=== PATIENT | female | born 1935 | race Caucasian/White ===

== ENCOUNTER 2017-08-10 11:33 | Emergency (ER) | payer MEDICARE, OTHER ==
[2017-08-10] MEDS ORDERED: LoraTADine TAB(NF) 10 MG TAB (AUTOSUB to CETIRIZINE) PO ONE (13:49)
[2017-08-10] MEDS ORDERED: Cetirizine* 10 MG TAB PO SCH (14:00)
[2017-08-10 14:26] LABS: ABS Basophils 0.1 10^3/ul (0-0.2); ABS Eosinophils 0.1 10^3/ul (0-0.6); ABS Lymphocytes 1.1 10^3/ul (1.0-4.8); ABS Monocytes 0.4 10^3/ul (0-0.8); ABS Neutrophils 5.7 10^3/ul (1.5-7.7); ABS Nucleated RBC 0 10^3/ul; Eosinophil % 1.4 % (0-6); Hematocrit 41 % (35-47); Hemoglobin 14.1 g/dl (12.0-16.0); Mean Corpuscular HGB Conc 34 g/dl (31-36); Mean Corpuscular Hemoglobin 33 pg (27-31); Mean Corpuscular Volume 96 fL (80-97); Mean Platelet Volume 8 um3 (7.4-10.4); Nucleated Red Blood Cells % 0; Platelet Count 264 10^3/ul (150-450); Red Blood Count 4.27 10^6/ul (4.0-5.4); Red Cell Distribution Width 13 % (10.5-15); White Blood Count 7.4 10^3/ul (3.5-10.8)
[2017-08-10 14:58] LABS: EGFR Non-African American 84.7 (>60)
[2017-08-10 17:24] VITALS: BP 158/66
--- NOTE | 2017-08-11 16:13 | ED ---
Surendra London Thomas, scribed for Tello Dobson MD on 08/10/17 at 1407 . Complex/Multi-Sys Presentation - HPI Summary HPI Summary: The patient is an 82 year old female who has been dealing with gastrointestinal discomfort, bloating, small stools, and weight loss for the last month. She was diagnosed with SIBO by her adult basic education instructor Dr. Yu. The patient recently finished a two-week course of Rifaximin for her SIBO. Five days ago, the patient had lip swelling that is relieved in the ED. The patient also complains of a sensation of my brain is on fire. Harjeet relieves her symptoms. She is on the FODMAP diet. She is on Lisinopril. - History Of Current Complaint Chief Complaint: EDAllergicReaction Time Seen by Provider: 08/10/17 13:02 Hx Obtained From: Patient Onset/Duration: Lasting Days - 5, Still Present Severity Currently: None Alleviating Factor(s): Harjeet Associated Signs And Symptoms: Positive: Other - GI discomfort, weight loss, lip swelling, "my brain is on fire" Related History: Other - Hx SIBO - Allergies/Home Medications Allergies/Adverse Reactions: Allergies Allergy/AdvReac Type Severity Reaction Status Date / Time Penicillins Allergy Rash Verified 08/10/17 11:38 PMH/Surg Hx/FS Hx/Imm Hx GI History: Reports: Other GI Disorders - Hx SIBO Opthamlomology History: Denies: Hx Legally Blind EENT History: Denies: Hx Deafness Infectious Disease History: No Infectious Disease History: Denies: Traveled Outside the [place] in Last 30 Days - Family History Known Family History: Negative: Blood Disorder - Social History Alcohol Use: None Substance Use Type: Reports: None Smoking Status (MU): Never Smoked Tobacco Review of Systems Positive: Other - Weight loss. Negative: Fever Positive: Other - Lip swelling Positive: Other - GI discomfort Neurological: Other - "my brain is on fire" All Other Systems Reviewed And Are Negative: Yes Physical Exam - Summary Physical Exam Summary: Appearance: The patient is well-nourished in no acute distress and in no acute pain. Skin: The skin is warm and dry and skin color reflects adequate perfusion. HEENT: ~The head is normocephalic and atraumatic. The pupils are equal and reactive. The conjunctivae are clear and without drainage. ~Nares are patent and without drainage. Mouth reveals moist mucous membranes and the throat is without erythema and exudate. The external ears are intact. The ear canals are patent and without drainage. The tympanic membranes are intact. Neck: the neck is supple with full range of motion and non-tender. There are no carotid bruits. ~There is no neck vein distension. Respiratory: Chest is non-tender. ~Lungs are clear to auscultation and breath sounds are symmetrical and equal. Cardiovascular: Heart is regular rate and rhythm. ~There is no murmur or rub auscultated. ~~There is no peripheral edema and pulses are symmetrical and equal. Abdomen: The abdomen is soft and non-tender. ~There are normal bowel sounds heard in all four quadrants and there is no organomegaly palpated. Musculoskeletal: There is no back tenderness noted. ~Extremities are non-tender with full range of motion. ~There is good capillary refill. There is no peripheral edema or calf tenderness elicited. Neurological: Patient is alert and oriented to person, place and time. ~The patient has symmetrical motor strength in all four extremities. ~Cranial nerves are grossly intact. Deep tendon reflexes are symmetrical and equal in all four extremities. Psychiatric: The patient has an appropriate affect and does not exhibit any anxiety or depression. Triage Information Reviewed: Yes Vital Signs On Initial Exam: Initial Vitals Temp Pulse Resp BP Pulse Ox 98.2 F 85 16 153/74 96 08/10/17 11:39 08/10/17 11:39 08/10/17 11:39 08/10/17 11:39 08/10/17 11:39 Vital Signs Reviewed: Yes Diagnostics - Vital Signs Vital Signs Temp Pulse Resp BP Pulse Ox 08/10/17 11:39 98.2 F 85 16 153/74 96 - Laboratory Lab Results: Lab Results 08/10/17 08/10/17 Range/Units 14:15 14:15 WBC 7.4 (3.5-10.8) 10^3/ul RBC 4.27 (4.0-5.4) 10^6/ul Hgb 14.1 (12.0-16.0) g/dl Hct 41 (35-47) % MCV 96 (80-97) fL MCH 33 H (27-31) pg MCHC 34 (31-36) g/dl RDW 13 (10.5-15) % Plt Count 264 (150-450) 10^3/ul MPV 8 (7.4-10.4) um3 Neut % (Auto) 76.8 (38-83) % Lymph % (Auto) 15.0 L (25-47) % Mccone % (Auto) 5.8 (0-7) % Eos % (Auto) 1.4 (0-6) % Baso % (Auto) 1.0 (0-2) % Absolute Neuts (auto) 5.7 (1.5-7.7) 10^3/ul Absolute Lymphs (auto) 1.1 (1.0-4.8) 10^3/ul Absolute Monos (auto) 0.4 (0-0.8) 10^3/ul Absolute Eos (auto) 0.1 (0-0.6) 10^3/ul Absolute Basos (auto) 0.1 (0-0.2) 10^3/ul Absolute Nucleated RBC 0 10^3/ul Nucleated RBC % 0 Sodium 137 (133-145) mmol/L Potassium 3.3 L (3.5-5.0) mmol/L Chloride 100 L (101-111) mmol/L Carbon Dioxide 29 (22-32) mmol/L Anion Gap 8 (2-11) mmol/L BUN 11 (6-24) mg/dL Creatinine 0.67 (0.51-0.95) mg/dL Est GFR ( Amer) 108.9 (>60) Est GFR (Non-Af Amer) 84.7 (>60) BUN/Creatinine Ratio 16.4 (8-20) Glucose 86 (70-100) mg/dL Calcium 9.7 (8.6-10.3) mg/dL Total Bilirubin 0.60 (0.2-1.0) mg/dL AST 15 (13-39) U/L ALT 9 (7-52) U/L Alkaline Phosphatase 43 (34-104) U/L C-Reactive Protein < 1.00 (< 5.00) mg/L Total Protein 6.5 (6.4-8.9) g/dL Albumin 4.2 (3.2-5.2) g/dL Globulin 2.3 (2-4) g/dL Albumin/Globulin Ratio 1.8 (1-3) Vitamin B12 280 (180-914) pg/mL Result Diagrams: 08/10/17 14:15 08/10/17 14:15 Lab Statement: Any lab studies that have been ordered have been reviewed, and results considered in the medical decision making process. Complex Multi-Symp Course/Dx Course Of Treatment: Ms. Main presented C/O her upper lip swelling and "my brain is inflamed". She improved with atarax. I could not appreciate any swelling or other findings on exam. She has recently taken xifaxin for SIBO and finished yesterday. She is also on an LANDON inhibitor. I recommended she F/U with her MD and continue harjeet. She may need to stop the LANDON if symptoms continue. - Diagnoses Provider Diagnoses: Allergic reaction Discharge - Discharge Plan Condition: Stable Disposition: HOME Prescriptions: hydrOXYzine HCL TAB* [Atarax 25 MG TAB*] 25 mg PO QID PRN #20 tab PRN Reason: Allergy Symptoms Patient Education Materials: General Allergic Reaction (ED) Referrals: Kiko Tee MD [Primary Care Provider] - 3 Days Additional Instructions: Follow up with your primary care physician within a week. Return to the emergency department for any new or worsening symptoms. The documentation as recorded by the Surendra alfaro Thomas accurately reflects the service I personally performed and the decisions made by me, Tello Dobson MD.
== END 2017-08-10 17:22 | disposition home or self-care (01) ==
LOC: ED 11:33
DX: T78.40XA Allergy, unspecified, initial encounter (principal); X58.XXXA Exposure to other specified factors, initial encounter
CPT/HCPCS: 36415; 80053; 82607; 85025; 86140; 99281; A9270-GY

== ENCOUNTER 2018-01-13 10:08 | Emergency (ER) | payer MEDICARE ==
[2018-01-13] MEDS ORDERED: NS 0.9% 1000 ML* 1,000 ML IV ONE (10:29)
[2018-01-13 10:47] LABS: ABS Basophils 0 10^3/ul (0-0.2); ABS Eosinophils 0.1 10^3/ul (0-0.6); ABS Lymphocytes 0.5 10^3/ul (1.0-4.8); ABS Monocytes 0.5 10^3/ul (0-0.8); ABS Neutrophils 10.2 10^3/ul (1.5-7.7); ABS Nucleated RBC 0 10^3/ul; Eosinophil % 0.5 % (0-6); Hematocrit 41 % (35-47); Hemoglobin 13.9 g/dl (12.0-16.0); Lymphocyte % 4.6 % (25-47); Mean Corpuscular HGB Conc 34 g/dl (31-36); Mean Corpuscular Hemoglobin 33 pg (27-31); Mean Corpuscular Volume 96 fL (80-97); Mean Platelet Volume 8.4 um3 (7.4-10.4); Nucleated Red Blood Cells % 0; Platelet Count 249 10^3/ul (150-450); Red Blood Count 4.28 10^6/ul (4.00-5.40); Red Cell Distribution Width 13 % (10.5-15); White Blood Count 11.3 10^3/ul (3.5-10.8)
--- NOTE | 2018-01-13 10:50 | ED ---
GI/ HPI - HPI Summary HPI Summary: The pt is an 82 y/o female BIBA, accompanied by her daughter with c/o N/V/D and near syncope at 08:00 this morning. Pt is scheduled to have a sigmoidoscopy as an outpatient today at 11:45am but came for evaluation after she ate a bowl of broth and then self-administered one enema and felt awful, started vomiting , had profuse watery diarrhea and her pulse dropped in the 50's. She knew her pulse was in the 50's because she wears an Apple watch. Five months ago she was diagnosed with Small Intestinal Bacterial Overgrowth (SIBO). Her croze cutter helper started her on a FODMAP (Fermentable Oligo-, Di-, Coffee-saccharides And Polyols) diet for which involves eating a diet rich in chicken, fish and eggs. Recently she added new foods such as peaches, cherries, cheese and wine which triggered her worsening sxs of fluffy, mucousy, orangish diarrhea. Since being dx'd with SIBO pt has had weight loss (107 to 89 lbs in 5 months), associated with diaphoresis and abdominal tenderness . Dr. Yu is doing the sigmoidoscopy today so he can do biopsies to further characterize her condition. Her heart rate is in the 60s usually, based on her Applewatch and drops to the 50s when she sleeps. The pt denies CP and dyspnea today. She takes Diazide, Potassium and Magnesium at home, but did not take them today. The pt denies a PMhx of CHF. She has + Fhx of CVA, CAD, no fam hx of colon CA. Home Medications Medication Instructions Recorded Confirmed Type Aspirin 81 mg CHEW TAB* [Aspirin 81 mg PO DAILY 01/13/18 01/13/18 History Low Dose TAB*] FLUoxetine CAP* [PROzac CAP*] 20 mg PO DAILY 01/13/18 01/13/18 History Florajen3 1 cap PO DAILY 01/13/18 01/13/18 History Mag64 64 mg PO DAILY 01/13/18 01/13/18 History Melatonin 5 mg PO BEDTIME PRN 01/13/18 01/13/18 History Multivitamin [Multivitamins] 1 cap PO DAILY 01/13/18 01/13/18 History Naproxen Sodium [Aleve] 220 mg PO DAILY PRN 01/13/18 01/13/18 History Potassium Chloride [Klor-Con 8] 8 meq PO DAILY 01/13/18 01/13/18 History Triamterene/HCTZ 37.5-25 MG* 1 cap PO DAILY 01/13/18 01/13/18 History [Dyazide CAP*] Initial Vital Signs Temp 96.6 F 01/13/18 10:09 Pulse 52 01/13/18 10:09 Resp 13 01/13/18 10:09 BP 156/77 01/13/18 10:09 Pulse Ox 97 01/13/18 10:09 - History of Current Complaint Chief Complaint: EDNauseaVomitDiarrh Time Seen by Provider: 01/13/18 10:29 Stated Complaint: VOMITING Hx Obtained From: Patient, Family/Packer Denture - Daughter Onset/Duration: Started Hours Ago, Worse Since - Today at 08:00 Timing: Constant Severity: Severe Current Severity: Moderate Pain Intensity: 0 Location of Pain: Diffuse Pain Characteristics: Cramping Associated Signs and Symptoms: Positive: Nausea, Vomiting, Weight Loss - From 107lbs, 5 months ago, to 89 lbs currently, Diarrhea, Diaphoresis, Abdominal Pain , Other: - Orangish stool, watery diarrhea. Negative: Chest Pain Aggravating Factor(s): Food - recent added foods to her diet per her croze cutter helper Alleviating Factor(s): Nothing - Allergy/Home Medications Allergies/Adverse Reactions: Allergies Allergy/AdvReac Type Severity Reaction Status Date / Time Penicillins Allergy Rash Verified 01/13/18 09:27 Home Medications: Home Medications Multivitamin [Multivitamins] 1 cap PO DAILY 01/13/18 [History Confirmed 01/13/18 ] PMH/Surg Hx/FS Hx/Imm Hx Previously Healthy: No Cardiovascular History: Reports: Hx Hypertension Denies: Hx Congestive Heart Failure GI History: Reports: Other GI Disorders - Hx Small Intestinal Bacterial Overgrowth(SIBO ) Sensory History: Denies: Hx Legally Blind, Hx Deafness Opthamlomology History: Denies: Hx Legally Blind - Surgical History Surgery Procedure, Year, and Place: none Infectious Disease History: No Infectious Disease History: Denies: Traveled Outside the [place] in Last 30 Days - Family History Known Family History: Positive: Cardiac Disease, Other - Denies a FHx of colon CA, positive fam hx of CVA Negative: Blood Disorder - Social History Occupation: Retired Lives: Alone Alcohol Use: None Substance Use Type: Reports: None Smoking Status (MU): Never Smoked Tobacco Review of Systems Positive: Skin Diaphoresis, Other - Positive: Weight loss Cardiovascular: Negative Respiratory: Negative Positive: Abdominal Pain, Vomiting, Diarrhea - Watery , Nausea, Other - Orangish , fluffy stool; Positive: Abd tenderness Positive: no symptoms reported Skin: Negative Neurological: Negative Psychological: Normal All Other Systems Reviewed And Are Negative: Yes Physical Exam - Summary Physical Exam Summary: Appearance: ill-appearing, moderate pain distress, thin, frail. Skin: Warm, color reflects adequate perfusion, dry Head: Normal Head/Face inspection, atraumatic Eyes: Conjunctiva clear ENT: Normal inspection Neck: Supple, no nodes, no JVD Respiratory: Lungs clear, normal breath sounds, no respiratory distress Cardio: RRR, No murmur, pulses normal, brisk capillary refill Abdomen: Soft, nondistended, diffusely tender Bowel sounds: Present Rectal with Chante as public finance specialist: external area with hemorrhoids, non thrombosed, not bleeding. no abnormalities noted. Full rectal exam not done, as pt appears to have had vagal reaction and near syncope with enema application earlier, and pt is having sigmoidoscopy today if able. Musculoskeletal: Strength Intact/ROM intact, no calf tenderness, no edema. Psychological: Normal Neuro: Alert, muscle tone normal, no focal deficit Triage Information Reviewed: Yes Vital Signs On Initial Exam: Initial Vitals Temp Pulse Resp BP Pulse Ox 96.6 F 52 13 156/77 97 01/13/18 10:09 01/13/18 10:09 01/13/18 10:09 01/13/18 10:09 01/13/18 10:09 Vital Signs Reviewed: Yes Diagnostics - Vital Signs Vital Signs Temp Pulse Resp BP Pulse Ox 01/13/18 10:09 96.6 F 52 13 156/77 97 - Laboratory Result Diagrams: 01/13/18 10:38 01/13/18 10:38 Lab Statement: Any lab studies that have been ordered have been reviewed, and results considered in the medical decision making process. - Radiology CXR Radiology Interpretation Completed By: Radiologist - IMPRESSION: NO ACTIVE CARDIOPULMONARY DISEASE IS NOTED. The ED physician has reviewed this radiology report. - EKG 1015 Cardiac Rate: Bradycardia EKG Rhythm: Sinus Bradycardia ST Segment: Non-Specific Ectopy: None EKG Interpretation: nl AVIVCT, nl QTc, nl axis, no acute changes EKG Comparison: Other - no prior to compare Re-Evaluation - Re-Evaluation First Eval Re-Evaluation Time: 12:33 Change: Improved - Pt sitting on the commode and is producing yellow stool. Her BP is 185/99 and heart rate 50 bpm Second Eval Re-Evaluation Time: 13:15 Change: Improved - Dr Yu saw the pt in the ED, cancelled the sigmoidoscopyfor today ad states she may be discharged. The pt reports feeling better and denies CP and dizziness. The pt will be discharged after making sure she can eat. Third Eval Re-Evaluation Time: 15:06 Change: Improved - The pt feels better and is ready for discharge. GIGU Course/Dx - Course Course Of Treatment: 82 yo F with chronic diarrhea, SIBO, due for outpatient sigmoidoscopy today, had near syncope and vasovagal episode with administration of first enema at home. Discussed with Dr. Yu who agreed with replace K+ and magnesium and advised second enema for adequate prep. Pt again had vasovagal episode with feeling like she would faint, bradycardia to 50's, diaphoresis, pallor. Dr. Yu came to ED and evaluated pt and spoke with pt and Airam barnes. Pt decided to post pone flexible sigmoidoscopy today, and Dr. Yu will arrange the sigmoidoscopy to be done with Anesthesia. Pt and daughter agree and pt and daughter agree with DC home now. Pt was able to eat and drink and ambulate in the ED prior to discharge. - Diagnoses Differential Diagnoses - Female: Cancer, Diverticulitis, Diarrhea, Gastroenteritis (Viral), Gastroenteritis (Bacterial), Ischemic Bowel, Other - vasovagal episode, CAD, intestinal ischemia Provider Diagnoses: Vasovagal near-syncope, Chronic diarrhea of unknown origin, Small intestinal bacterial overgrowth, Hypokalemia, Hypomagnesemia - Physician Notifications Discussed Care Of Patient With: Surendra Yu - County Bailiff Time Discussed With Above Provider: 11:10 - 11: 25: Dr Yu recommends administering a secong enema before he sees the pt at his office 12:29: Advised Dr. Yu to come see the pt in the ED Instructed by Provider To: Other - Notified the provider that the pt was being referred to his office. Discharge - Sign-Out/Discharge Documenting (check all that apply): Patient Departure - home - Discharge Plan Condition: Stable Disposition: HOME Patient Education Materials: Near Syncope (ED) Referrals: Surendra Yu MD [Medical Doctor] - 1 Week Kiko Tee MD [Primary Care Provider] - 2 Days Additional Instructions: Your potassium was 3.2 (normal is 3.5) and your magnesium was 1.7 (normal is 1.9 ). You were given IV replacement of both of these ions IV. Dr. Yu saw you while you were in the ER and has decided to do your procedure with anesthesia. You should coordinate with his office for those arrangements. You may resume your usual medications. Return to the ER if you have any new or worsening symptoms. - Billing Disposition and Condition Condition: STABLE Disposition: Home - Attestation Statements Document Initiated by Darline: Yes Documenting Scribe: Ginna Canseco Provider For Whom Darline is Documenting (Include Credential): Dr. Cristiane Hanks MD Scribe Attestation: Ginna London , scribed for Dr. Cristiane Hanks MD on 01/15/18 at 2230. Scribe Documentation Reviewed: Yes Provider Attestation: The documentation as recorded by the Ginna alfaro accurately reflects the service I personally performed and the decisions made by me, Dr. Cristiane Hanks MD
[2018-01-13 11:04] LABS: EGFR Non-African American 45.9 (>60)
[2018-01-13 11:08] LABS: INR 1.23 (0.77-1.02)
[2018-01-13] MEDS ORDERED: KCL 10 MEQ/50 ML IVPREMIX* 10 MEQ/50 ML BAG IV ONE (11:08)
[2018-01-13] MEDS ORDERED: Sodium Phosphate ADULT ENEMA* 118 ml bottle PR ONE (11:24)
[2018-01-13] MEDS ORDERED: Magnesium Sulfate 1 GM IV* 1 GM/100 ML BAG IV ONE (11:26)
--- NOTE | 2018-01-13 11:37 | RAD ---
Indication: Near syncope. Single frontal view of the chest performed at 1105 hours was reviewed. No prior study is available. No mediastinal shift is noted. Heart is of normal size and configuration. Lung bell appear clear. The lung bell appear hyperinflated. IMPRESSION: NO ACTIVE CARDIOPULMONARY DISEASE IS NOTED.
[2018-01-13 15:12] VITALS: BP 123/65
== END 2018-01-13 15:12 | disposition home or self-care (01) ==
LOC: ED 10:08
DX: R10.9 Unspecified abdominal pain (principal); R11.10 Vomiting, unspecified; R19.7 Diarrhea, unspecified; R55 Syncope and collapse; E87.6 Hypokalemia; E83.42 Hypomagnesemia
CPT/HCPCS: 36415; 71045; 80053; 82550; 83605; 83735; 84443; 84484; 85025; 85379; 85610; 85730; 93005; 99283; A9270-GY; J3475; J3480

== ENCOUNTER → 2018-01-20 13:24 | Day surgery (SDC) | payer MEDICARE ==
[~2018-01-20 13:24] MED LIST: Buffered Lidocaine 0.9% SYRIN* 5 ML/SYR SYRINGE INTRADERM ONE; Lidocaine 2% PF * 5 ML VIAL ONE; Midazolam* 1 MG/ML 5 ML VIAL (5 MG) ONE; Ondansetron INJ* 2 MG/ML VIAL ONE; Propofol* 10 MG/ML 20 ML BTL IV PUSH ONE; fentaNYL* 50 MCG/ML 2 ML VIAL (100 MCG VIAL) ONE
[2018-01-20 14:34] VITALS: BP 148/73
--- NOTE | 2018-01-20 23:34 | PRO ---
CC: Dr. Tee * DATE OF PROCEDURE: 01/20/18 - [facility] DATE OF : 39 PROCEDURE: Flexible sigmoidoscopy. INDICATION: Chronic diarrhea. The patient is refusing colonoscopy as she does not think she can tolerate the prep. This is an unprepped flex sig. MEDICATIONS GIVEN: 25 mcg IV fentanyl, 3 mg IV Versed per the anesthesia staff. DESCRIPTION OF PROCEDURE: After the flexible sigmoidoscopy procedure including risks, benefits, and alternatives not limited to perforation, surgery, and/or were explained to Mrs. Main, a written consent was then obtained. IV medication was given and a rectal exam was performed. The rectal exam was unremarkable. An Olympus colonoscope was then inserted into the patient's rectum and advanced to the sigmoid colon. There was large amount of stool at this point. I terminated the procedure. I took numerous random biopsies on the way back. There was fine colitis. In the rectum, retroflexion maneuver was unremarkable. The scope was then withdrawn from the patient. She tolerated the procedure well, was returned to the recovery room in stable condition. IMPRESSION: 1. Flexible sigmoidoscopy with biopsies. 2. Diarrhea. 3. Colitis. 4. I will follow up on all the biopsies and report back to the patient at that time. [id number] #: [id number] MTDD
== END | disposition home or self-care (01) ==
LOC: OR 13:24
PROVIDERS: ATTEND Internal Medicine Gastroenterology
DX: R19.7 Diarrhea, unspecified (principal); K52.9 Noninfective gastroenteritis and colitis, unspecified; I10 Essential (primary) hypertension; M19.90 Unspecified osteoarthritis, unspecified site; F32.9 Major depressive disorder, single episode, unspecified
CPT/HCPCS: 88305; J2250; J2405; J2704; J3010

== ENCOUNTER 2024-02-19 11:01 | Inpatient (IN) ==
[2024-02-19 11:23] LABS: ABS Basophils 0.1 10^3/uL (0.0-0.1); ABS Eosinophils 0.1 10^3/uL (0.0-0.5); ABS Lymphocytes 1.1 10^3/uL (1.0-4.8); ABS Monocytes 0.4 10^3/uL (0.0-0.9); ABS Neutrophils 4.6 10^3/uL (1.5-7.6); Eosinophil % 2.1 %; Hematocrit 40.4 % (35-45); Hemoglobin 13.8 g/dL (11.5-14.3); Lymphocyte % 16.9 %; Mean Corpuscular Hemoglobin 33.6 pg (27-33); Mean Corpuscular Hgb Conc 34.1 g/dL (31-36); Mean Corpuscular Volume 98.7 fL (80-97); Mean Platelet Volume 7.7 fL (7.5-11.2); Platelet Count 267 10^3/uL (150-450); Red Blood Count 4.09 10^6/uL (3.63-4.92); Red Cell Distribution Width 13.4 % (12-17); White Blood Count 6.3 10^3/uL (3.8-11.8)
[2024-02-19] MEDS ORDERED: TENECTEPLASE 50 MG VIAL KIT 5 MG/ML (reconstituted) IV ONE (11:30)
[2024-02-19] MEDS: TENECTEPLASE 50 MG VIAL KIT 5 MG/ML (reconstituted) IV ONE (11:32)
[2024-02-19] MEDS: Labetalol IV 5 MG/ML 20 ml VIAL IV PUSH ONE (11:34)
[2024-02-19] MEDS ORDERED: Labetalol IV 5 MG/ML 20 ml VIAL ONE (11:35)
[2024-02-19 11:55] LABS: Albumin 4.2 g/dL (3.2-5.2); Albumin/Globulin Ratio 1.8 (1-3); Calcium 9.6 mg/dL (8.6-10.3); Creatinine, Serum 0.77 mg/dL (0.51-0.95); Direct Bilirubin 0.1 mg/dL (0.03-0.18); Globulin 2.4 g/dL (2-4); HDL Cholesterol 69.5 mg/dL; Indirect Bilirubin 0.4 mg/dL (0.3-1.0); Potassium 4.3 mmol/L (3.5-5.0); Total Bilirubin 0.5 mg/dL (0.2-1.0); Total Protein 6.6 g/dL (6.4-8.9); eGFR CKD-EPI 75.1 (>60)
[2024-02-19 12:14] LABS: Activated Partial Thrombo Time 35.1 seconds (26.0-38.0); INR 1.3 (0.85-1.14)
[2024-02-19] MEDS ORDERED: Ondansetron 4 mg VIAL 2 MG/ML 2 ml VIAL IV PRN (13:30)
[2024-02-19] MEDS ORDERED: Sulfur Hexaflouride MICROSPHR 25 MG VIAL IV PRN (15:22)
[2024-02-19 20:07] LABS: Urine Appearance Clear; Urine Bilirubin Negative (Negative); Urine Blood Negative (Negative); Urine Color Light-Yellow; Urine Glucose Negative (Negative); Urine Ketones 1+ (Negative); Urine Nitrite Negative (Negative); Urine Protein Negative (Negative); Urine Specific Gravity 1.037 (1.002-1.030); Urine Urobilinogen Negative (Negative)
[2024-02-19 20:29] LABS: Urine Bacteria Absent /HPF (Absent); Urine Red Blood Cell 1+(3-5/hpf) /HPF (0-Trace); Urine Squamous Epithelial Cell Present /HPF (Absent); Urine White Blood Cell Trace(0-5/hpf) /HPF (0-Trace)
[2024-02-19] MEDS ORDERED: Metoprolol Tartrate 5 mg VIAL 5 ml VIAL (1 mg/ml) IV ONE (21:20)
[2024-02-20 00:02] VITALS: BP 140/81
== END 2024-02-20 01:15 | disposition short-term general hospital (02) | DRG 61 ==
LOC: ED 11:01 → EDHOLD 13:27 → ICU 13:57
PROVIDERS: ADMIT Internal Medicine Critical Care Medicine; ATTEND Internal Medicine Critical Care Medicine

== ENCOUNTER 2024-02-26 11:19 | Inpatient (IN) ==
[2024-02-26] MEDS ORDERED: Senna TAB 8.6 mg TAB PO PRN (12:47)
[2024-02-27] MEDS: Cholecalciferol (VIT D3) 1,000 unit TAB PO SCH (08:44)
[2024-02-27] MEDS: MESALAMINE 400 MG PO SCH (08:44)
[2024-02-27] MEDS ORDERED: MESALAMINE 1.2 GM PO SCH (19:44)
[2024-02-27] MEDS: MESALAMINE 1.2 GM PO SCH (20:27)
[2024-02-28 06:16] LABS: ABS Eosinophils 0.3 10^3/uL (0.0-0.5); ABS Lymphocytes 0.7 10^3/uL (1.0-4.8); ABS Monocytes 0.6 10^3/uL (0.0-0.9); ABS Neutrophils 4.9 10^3/uL (1.5-7.6); Eosinophil % 3.9 %; Hematocrit 36.8 % (35-45); Hemoglobin 12.4 g/dL (11.5-14.3); Lymphocyte % 10.8 %; Mean Corpuscular Hemoglobin 32.5 pg (27-33); Mean Corpuscular Hgb Conc 33.8 g/dL (31-36); Mean Corpuscular Volume 96.1 fL (80-97); Mean Platelet Volume 7.5 fL (7.5-11.2); Platelet Count 359 10^3/uL (150-450); Red Blood Count 3.83 10^6/uL (3.63-4.92); White Blood Count 6.4 10^3/uL (3.8-11.8)
[2024-02-28 06:31] LABS: Albumin 3.6 g/dL (3.2-5.2); Albumin/Globulin Ratio 1.3 (1-3); Calcium 9.3 mg/dL (8.6-10.3); Creatinine, Serum 0.62 mg/dL (0.51-0.95); Globulin 2.7 g/dL (2-4); Potassium 4.2 mmol/L (3.5-5.0); Total Bilirubin 0.5 mg/dL (0.2-1.0); Total Protein 6.3 g/dL (6.4-8.9); eGFR CKD-EPI 86.7 (>60)
[2024-02-28] MEDS: Aspirin EC 81 mg TAB.EC (enteric coated) PO SCH (11:29)
[2024-02-28 12:47] LABS: Activated Partial Thrombo Time 33.1 seconds (26.0-38.0); INR 1.57 (0.85-1.14)
[2024-02-28] MEDS: Magnesium Hydroxide LIQ 30 ML UDC PO PRN (14:07)
[2024-02-28] MEDS: Heparin 5000 UNITS/ML 1 mL VIAL SUBCUT SCH (20:49)
[2024-03-02 06:54] LABS: ABS Basophils 0.1 10^3/uL (0.0-0.1); ABS Eosinophils 0.3 10^3/uL (0.0-0.5); ABS Lymphocytes 1.3 10^3/uL (1.0-4.8); ABS Monocytes 0.5 10^3/uL (0.0-0.9); ABS Neutrophils 4.8 10^3/uL (1.5-7.6); Eosinophil % 4.7 %; Hematocrit 35.9 % (35-45); Hemoglobin 12.5 g/dL (11.5-14.3); Lymphocyte % 18.8 %; Mean Corpuscular Hemoglobin 33.6 pg (27-33); Mean Corpuscular Hgb Conc 34.9 g/dL (31-36); Mean Corpuscular Volume 96.3 fL (80-97); Mean Platelet Volume 8.2 fL (7.5-11.2); Platelet Count 365 10^3/uL (150-450); Red Blood Count 3.72 10^6/uL (3.63-4.92); Red Cell Distribution Width 12.9 % (12-17)
[2024-03-02] MEDS: Hemorrhoidal OINT 1 TUBE PR PRN (20:20)
[2024-03-05] MEDS ORDERED: Influenza Vaccine *TRI* 2024-25* 0.5 ML SYRINGE IM ONE (10:00)
[2024-03-05] MEDS ORDERED: Pneumococcal 20-Valent Conj 0.5 ML SYR Vaccine IM ONE (10:00)
[2024-03-06 07:03] LABS: ABS Basophils 0.1 10^3/uL (0.0-0.1); ABS Eosinophils 0.4 10^3/uL (0.0-0.5); ABS Lymphocytes 1.3 10^3/uL (1.0-4.8); ABS Monocytes 0.5 10^3/uL (0.0-0.9); ABS Neutrophils 4.3 10^3/uL (1.5-7.6); Eosinophil % 5.5 %; Hematocrit 36.9 % (35-45); Hemoglobin 12.8 g/dL (11.5-14.3); Mean Corpuscular Hemoglobin 33.5 pg (27-33); Mean Corpuscular Hgb Conc 34.7 g/dL (31-36); Mean Corpuscular Volume 96.6 fL (80-97); Mean Platelet Volume 7.3 fL (7.5-11.2); Platelet Count 407 10^3/uL (150-450); Red Blood Count 3.82 10^6/uL (3.63-4.92); Red Cell Distribution Width 13.3 % (12-17); White Blood Count 6.5 10^3/uL (3.8-11.8)
[2024-03-06 07:42] LABS: Albumin 3.8 g/dL (3.2-5.2); Albumin/Globulin Ratio 1.4 (1-3); Calcium 9.9 mg/dL (8.6-10.3); Creatinine, Serum 0.75 mg/dL (0.51-0.95); Globulin 2.7 g/dL (2-4); Potassium 4.8 mmol/L (3.5-5.0); Total Bilirubin 0.5 mg/dL (0.2-1.0); Total Protein 6.5 g/dL (6.4-8.9); eGFR CKD-EPI 77.5 (>60)
[2024-03-09 05:42] LABS: ABS Basophils 0.1 10^3/uL (0.0-0.1); ABS Eosinophils 0.3 10^3/uL (0.0-0.5); ABS Lymphocytes 1.2 10^3/uL (1.0-4.8); ABS Monocytes 0.4 10^3/uL (0.0-0.9); ABS Neutrophils 5.1 10^3/uL (1.5-7.6); Eosinophil % 4.5 %; Hematocrit 36.4 % (35-45); Hemoglobin 12.6 g/dL (11.5-14.3); Lymphocyte % 16.8 %; Mean Corpuscular Hemoglobin 33.7 pg (27-33); Mean Corpuscular Hgb Conc 34.6 g/dL (31-36); Mean Corpuscular Volume 97.2 fL (80-97); Mean Platelet Volume 7.6 fL (7.5-11.2); Platelet Count 365 10^3/uL (150-450); Red Blood Count 3.74 10^6/uL (3.63-4.92); Red Cell Distribution Width 13.3 % (12-17); White Blood Count 7.1 10^3/uL (3.8-11.8)
[2024-03-09] MEDS: Influenza Vaccine *TRI* 2024-25* 0.5 ML SYRINGE IM ONE (09:14)
[2024-03-09] MEDS: Pneumococcal 20-Valent Conj 0.5 ML SYR Vaccine IM ONE (16:13)
[2024-03-10 06:07] VITALS: BP 110/65
== END 2024-03-10 11:48 | disposition home or self-care (01) | DRG 64 ==
LOC: PMRU 11:19
PROVIDERS: ADMIT Physical Medicine & Rehabilitation; ATTEND Physical Medicine & Rehabilitation